=== PATIENT | male | born 1970 | race Two or more races ===

== ENCOUNTER 2023-07-19 17:21 | Inpatient (IN) | payer OTHER ==
[~2023-07-19] VITALS: Ht 170.2 cm; Wt 97.2 kg
[2023-07-19 18:08] LABS: Alanine Aminotransferase 23 U/L (7-40); Albumin 4.3 g/dL (3.2-4.8); Alkaline Phosphatase 62 U/L (46-116); Anion Gap 12 (5-15); Aspartate Aminotransferase 20 U/L (13-40); BUN/Creatinine Ratio 13.6 (10.0-20.0); Bilirubin, Total 0.6 mg/dL (0.2-1.0); Blood Urea Nitrogen 8 mg/dL (9-23); Calcium 9.2 mg/dL (8.5-10.1); Carbon Dioxide 23 mmol/L (20-30); Chloride 97 mmol/L (98-107); Glucose 94 mg/dL (74-106); Potassium 3.6 mmol/L (3.5-5.1); Sodium 132 mmol/L (136-145); Total Protein 6.8 g/dL (5.7-8.2)
[2023-07-19] MEDS ORDERED: HYDROmorphone HCL 2 MG/ML VL/or syr IM ONE (18:30)
[2023-07-19 18:41] LABS: Basophils # (auto) 0 10 ^3/uL (0-0.2); Basophils % (auto) 0.3 % (0.0-2.0); Eosinophils # (auto) 0 10 ^3/uL (0-0.8); Eosinophils % (auto) 0.4 % (0.0-7.0); Hematocrit 45.4 % (41.0-53.0); Hemoglobin 15.6 g/dL (13.5-17.5); Lymphocytes # (auto) 1.1 10 ^3/uL (0.4-5.4); Lymphocytes % (auto) 9.1 % (10.0-50.0); Mean Corpuscular Hgb Conc. 34.4 g/dL (32.0-36.0); Monocytes # (auto) 0.9 10 ^3/uL (0-1.3); Monocytes % (auto) 7.7 % (0.0-12.0); Neutrophils % (auto) 82.5 % (37.0-80.0); Nucleated Red Blood Cells % 0.1 %; Red Blood Cells 4.88 10^6/uL (4.5-5.90); Red Cell Distribution Width 13.3 % (11.8-14.3); White Blood Cell 12.1 10^3/uL (4.4-10.8)
[2023-07-19 19:30] VITALS: PULSE 63; RESP 16; O2SAT 99
[2023-07-19 22:28] LABS: Urine Bacteria FEW /hpf (None Seen); Urine Blood Negative /uL (Negative); Urine Clarity Clear (Clear); Urine Color Yellow (Yellow); Urine Hyaline Cast FEW /lpf (0 - 2); Urine Protein, UAD TRACE (Negative); Urine Specific Gravity 1.014 (1.001-1.035); Urine Urobilinogen Normal (Negative); Urine WBC 1 /hpf (0 - 3); Urine pH 6.5 (5.0-8.0)
[2023-07-19] MEDS ORDERED: ASPirin 81 mg TAB PO ONE (23:00)
[2023-07-19] MEDS ORDERED: LORazepam 0.5 MG TAB PO ONE ×2 (23:00)
[2023-07-19] MEDS ORDERED: ACETAMINOPHEN 325 MG TAB PO ONE (23:00)
[2023-07-19] MEDS ORDERED: ACETAMINOPHEN 325 MG TAB PO PRN (23:30)
[2023-07-19] MEDS ORDERED: ONDANSETRON HCL 4 MG/2 ML VIAL IV PRN (23:30)
[2023-07-19] MEDS ORDERED: LORazepam 2MG/ML-1ML VIAL IV PRN (23:30)
[2023-07-19] MEDS ORDERED: HYDROcodone-ACET 5/325MG TAB PO PRN (23:30)
[2023-07-19] MEDS ORDERED: MORPHINE SULFATE INJ 2 MG/ml SYRG IV PRN (23:30)
[2023-07-19] MEDS ORDERED: NITROGLYCERIN 0.4 MG SL TAB SL PRN (23:30)
[2023-07-19] MEDS ORDERED: DOCUSATE SOD 100 MG CAP PO PRN (23:30)
[2023-07-19] MEDS ORDERED: HYDROmorphone HCL 2 MG/ML VL/or syr IV PRN (23:30)
[2023-07-20] MEDS: SODIUM CHLORIDE 0.9% 1,000 ML IV SCH ×2 (00:28→16:10)
[2023-07-20 05:44] LABS: Basophils # (auto) 0 10 ^3/uL (0-0.2); Basophils % (auto) 0.2 % (0.0-2.0); Eosinophils # (auto) 0.1 10 ^3/uL (0-0.8); Eosinophils % (auto) 0.9 % (0.0-7.0); Hematocrit 42.5 % (41.0-53.0); Hemoglobin 14.5 g/dL (13.5-17.5); Lymphocytes # (auto) 2.1 10 ^3/uL (0.4-5.4); Lymphocytes % (auto) 22.3 % (10.0-50.0); Mean Corpuscular Hemoglobin 32.1 pg (28.0-32.0); Mean Corpuscular Hgb Conc. 34.2 g/dL (32.0-36.0); Mean Corpuscular Volume 93.7 fL (80.0-100.0); Monocytes # (auto) 1.2 10 ^3/uL (0-1.3); Monocytes % (auto) 13.4 % (0.0-12.0); Neutrophils # (auto) 5.8 10 ^3/uL (1.6-8.6); Neutrophils % (auto) 63.2 % (37.0-80.0); Red Blood Cells 4.53 10^6/uL (4.5-5.90); Red Cell Distribution Width 13.1 % (11.8-14.3); White Blood Cell 9.2 10^3/uL (4.4-10.8)
[2023-07-20 06:05] LABS: Alanine Aminotransferase 13 U/L (7-40); Albumin 4.1 g/dL (3.2-4.8); Alkaline Phosphatase 59 U/L (46-116); Anion Gap 8 (5-15); Aspartate Aminotransferase 17 U/L (13-40); Blood Urea Nitrogen 11 mg/dL (9-23); Calcium 8.8 mg/dL (8.7-10.4); Carbon Dioxide 26 mmol/L (20-30); Chloride 97 mmol/L (98-107); Glucose 82 mg/dL (74-106); Potassium 3.8 mmol/L (3.5-5.1); Sodium 131 mmol/L (136-145)
[2023-07-20 06:06] LABS: Bilirubin, Total 0.8 mg/dL (0.2-1.0)
[2023-07-20 08:00] VITALS: PULSE 74; O2SAT 98
[2023-07-20 09:00] VITALS: BP 170/90; PULSE 70; RESP 18; TEMP 98.1; O2SAT 100
[2023-07-20] MEDS: ASPirin 81 mg TAB PO SCH (09:30)
[2023-07-20 12:49] VITALS: BP 159/87; PULSE 72; RESP 18; TEMP 98.1; O2SAT 95
[2023-07-20] MEDS ORDERED: cefTRIAXone 1GM/50ML D5W 50 ML IV SCH (13:00)
[2023-07-20] MEDS: METOPROLOL SUCCINATE XL 50 MG TAB PO SCH (13:00)
[2023-07-20] MEDS ORDERED: LABETALOL HCL 5 MG/ML 4ML SYRINGE IV PRN (14:30)
[2023-07-20 16:34] VITALS: BP 136/79; PULSE 80; RESP 20; TEMP 98.1; O2SAT 96
[2023-07-20] MEDS: SUCRALFATE 1 GM/10 ML ORAL SUSP PO SCH (16:50)
[2023-07-20 20:00] VITALS: PULSE 69; PULSE 79; RESP 18; O2SAT 96
[2023-07-20] MEDS: PANTOPRAZOLE 40 MG TAB PO SCH (20:56)
[2023-07-20 22:00] VITALS: BP 135/78; PULSE 69; RESP 18; TEMP 99.2; O2SAT 96
[2023-07-21] VITALS (7 sets, daily range): BP systolic 131–156; BP diastolic 76–86; PULSE 54–65; RESP 14–20; TEMP 97.4–99.1; O2SAT 92–98
[2023-07-21 05:42] LABS: Basophils # (auto) 0 10 ^3/uL (0-0.2); Basophils % (auto) 0.2 % (0.0-2.0); Eosinophils # (auto) 0.1 10 ^3/uL (0-0.8); Eosinophils % (auto) 1.2 % (0.0-7.0); Hematocrit 41.5 % (41.0-53.0); Hemoglobin 14.3 g/dL (13.5-17.5); Lymphocytes # (auto) 1.5 10 ^3/uL (0.4-5.4); Lymphocytes % (auto) 19.1 % (10.0-50.0); Mean Corpuscular Hemoglobin 32.2 pg (28.0-32.0); Mean Corpuscular Hgb Conc. 34.5 g/dL (32.0-36.0); Mean Corpuscular Volume 93.4 fL (80.0-100.0); Monocytes # (auto) 0.8 10 ^3/uL (0-1.3); Monocytes % (auto) 10.8 % (0.0-12.0); Neutrophils # (auto) 5.3 10 ^3/uL (1.6-8.6); Neutrophils % (auto) 68.7 % (37.0-80.0); Nucleated Red Blood Cells % 0.1 %; Red Blood Cells 4.44 10^6/uL (4.5-5.90); White Blood Cell 7.7 10^3/uL (4.4-10.8)
[2023-07-21 06:03] LABS: Calcium 8.6 mg/dL (8.7-10.4); Chloride 103 mmol/L (98-107); Potassium 3.4 mmol/L (3.5-5.1); Sodium 135 mmol/L (136-145)
[2023-07-21 06:04] LABS: Anion Gap 6 (5-15); Carbon Dioxide 26 mmol/L (20-30)
[2023-07-21 06:09] LABS: BUN/Creatinine Ratio 13.5 (10.0-20.0); Blood Urea Nitrogen 10 mg/dL (9-23); Glucose 99 mg/dL (74-106)
[2023-07-21 06:10] LABS: Magnesium 1.8 mg/dL (1.6-2.6)
[2023-07-21] MEDS: SUCRALFATE 1 GM/10 ML ORAL SUSP PO SCH ×2 (06:27→17:25)
[2023-07-21 07:31] LABS: Cholesterol 142 mg/dL (< 200); HDL Cholesterol 57 mg/dL (40-59); LDL Cholesterol 71 mg/dL (< 100); Triglycerides 55 mg/dL (< 150)
[2023-07-21] MEDS: SODIUM CHLORIDE 0.9% 1,000 ML IV SCH (08:50)
[2023-07-21] MEDS: PANTOPRAZOLE 40 MG TAB PO SCH ×2 (10:13→21:19)
[2023-07-21] MEDS: ASPirin 81 mg TAB PO SCH (10:13)
[2023-07-21] MEDS: MULTIPLE VITAMIN TAB PO SCH (10:13)
[2023-07-21] MEDS: THIAMINE HCL 100 MG TAB PO SCH (10:13)
[2023-07-21] MEDS: METOPROLOL SUCCINATE XL 50 MG TAB PO SCH (10:14)
[2023-07-21] MEDS ORDERED: POTASSIUM CHL 20 Meq TABLET PO ONE (10:45)
[2023-07-21] MEDS ORDERED: LISINOPRIL 20 MG TAB PO ONE (10:45)
[2023-07-21] MEDS ORDERED: MAGNESIUM OXIDE 400 MG TAB PO ONE (11:00)
[2023-07-22] MEDS: SODIUM CHLORIDE 0.9% 1,000 ML IV SCH (01:30)
[2023-07-22 05:00] VITALS: BP 155/97; PULSE 64; RESP 13; TEMP 97.7; O2SAT 93
[2023-07-22 05:23] LABS: Basophils # (auto) 0 10 ^3/uL (0-0.2); Basophils % (auto) 0.5 % (0.0-2.0); Eosinophils # (auto) 0.2 10 ^3/uL (0-0.8); Eosinophils % (auto) 3.3 % (0.0-7.0); Hematocrit 40.8 % (41.0-53.0); Hemoglobin 13.8 g/dL (13.5-17.5); Lymphocytes # (auto) 1.6 10 ^3/uL (0.4-5.4); Lymphocytes % (auto) 25.1 % (10.0-50.0); Mean Corpuscular Hemoglobin 31.9 pg (28.0-32.0); Mean Corpuscular Hgb Conc. 33.9 g/dL (32.0-36.0); Monocytes # (auto) 0.8 10 ^3/uL (0-1.3); Monocytes % (auto) 12.5 % (0.0-12.0); Neutrophils # (auto) 3.8 10 ^3/uL (1.6-8.6); Neutrophils % (auto) 58.6 % (37.0-80.0); Red Blood Cells 4.34 10^6/uL (4.5-5.90); Red Cell Distribution Width 13.4 % (11.8-14.3); White Blood Cell 6.4 10^3/uL (4.4-10.8)
[2023-07-22 05:24] LABS: Chloride 105 mmol/L (98-107); Potassium 3.9 mmol/L (3.5-5.1); Sodium 138 mmol/L (136-145)
[2023-07-22 05:25] LABS: Anion Gap 4 (5-15); Calcium 8.8 mg/dL (8.7-10.4); Carbon Dioxide 29 mmol/L (20-30)
[2023-07-22 05:30] LABS: BUN/Creatinine Ratio 11.9 (10.0-20.0); Blood Urea Nitrogen 10 mg/dL (9-23); Glucose 98 mg/dL (74-106)
[2023-07-22] MEDS: SUCRALFATE 1 GM/10 ML ORAL SUSP PO SCH (06:07)
[2023-07-22 07:35] VITALS: BP 158/99; PULSE 60; RESP 17; TEMP 98.3; O2SAT 99
[2023-07-22 07:57] VITALS: PULSE 66
[2023-07-22 08:51] VITALS: BP 158/99; PULSE 60; RESP 17; TEMP 98.3; O2SAT 99
[2023-07-22] MEDS: ASPirin 81 mg TAB PO SCH (09:15)
[2023-07-22] MEDS: METOPROLOL SUCCINATE XL 50 MG TAB PO SCH (09:16)
[2023-07-22] MEDS: PANTOPRAZOLE 40 MG TAB PO SCH (09:16)
[2023-07-22] MEDS: MULTIPLE VITAMIN TAB PO SCH (09:17)
[2023-07-22] MEDS: THIAMINE HCL 100 MG TAB PO SCH (09:17)
[2023-07-22] MEDS ORDERED: LISINOPRIL 20 MG TAB PO SCH (10:00)
[2023-07-22 12:40] VITALS: BP 154/95; PULSE 54; RESP 17; TEMP 97.9; O2SAT 98
[2023-07-22] MEDS ORDERED: PANT40T PO ×2 (14:46)
[2023-07-22] MEDS ORDERED: METO-6 PO (14:46)
[2023-07-22] MEDS ORDERED: LISI20TA56 PO (14:46)
[2023-07-22] MEDS ORDERED: PANT40TA2 PO (14:51)
[2023-07-22 15:18] VITALS: BP 154/95; PULSE 54; RESP 17; TEMP 97.9; O2SAT 98
[2023-07-23 07:07] LABS: Prostate Specific Antigen 1.5 ng/mL (0.0-4.0)
[2023-07-23 09:07] LABS: PSA Free 0.19 ng/mL
== END 2023-07-22 16:00 | disposition home or self-care (01) | DRG 305 ==
LOC: ER 17:21 → TELE 23:21 → TELE-WESTW 07-20 07:47
PROVIDERS: ADMIT Nurse Practitioner Family; ATTEND Nurse Practitioner Acute Care
DX: I16.0 Hypertensive urgency (principal); K29.70 Gastritis, unspecified, without bleeding; I10 Essential (primary) hypertension; E66.9 Obesity, unspecified; F10.20 Alcohol dependence, uncomplicated; I27.20 Pulmonary hypertension, unspecified; Z79.899 Other long term (current) drug therapy; Z91.148 Patient's other noncompliance with medication regimen for other reason; Z68.33 Body mass index [BMI] 33.0-33.9, adult
CPT/HCPCS: 36415; 71046; 74176; 80048; 80053; 80061; 81001; 83036; 83690; 83735; 84154; 84443; 84484; 85025; 85379; 93005; 93306; 96360; 96372; G0378